=== PATIENT | male | born 1995 | race American Indian/Alaskan Native ===

== ENCOUNTER 2022-10-01 06:30 | Day surgery (SDC) | payer OTHER ==
[~2022-10-01 06:30] MED LIST: DEXAMETHASONE SOD PHOSPHATE 4 MG/ML 1 ML VIAL IV ONE; HEPARIN SODIUM,PORCINE/PF 5,000 UNIT/0.5 ML SYRINGE SQ PRN; LACTATED RINGERS 1,000 ML IV SCH; LIDOCAINE 1% (10MG/ML) FOR IV START INTRADERMA PRN; ONDANSETRON 4 MG/2 ML VIAL IVP ONE; Pre Op ABX Message 1 EACH MISC MISCELLANE ONE
--- NOTE | 2022-10-01 06:31 | P.GSHP ---
History of Present Illness H&P Date: 10/01/22 CHIEF COMPLAINT: Tumor left forearm, 3 cm HISTORY OF PRESENT ILLNESS: The patient is a 50 year-old male with left forearm mass with tenderness over 5+ years. He now who presents for definitive excision. PAST MEDICAL HISTORY: Please see list. PAST SURGICAL HISTORY: Please see list. MEDICATIONS: Please see list. ALLERGIES: Please see list. SOCIAL HISTORY: No illicit drug use FAMILY HISTORY: No reports of Crohn disease or ulcerative colitis. REVIEW OF ORGAN SYSTEMS: CONSTITUTIONAL: No reports of fevers or chills. GI: Denies any blood in stools or constipation. PHYSICAL EXAM: VITAL SIGNS: Stable Musculoskeletal: No clubbing cyanosis GENERAL: Well developed and in no acute distress. Pleasant. HEENT: No sclera icterus. Extraocular movements grossly intact. Moist buccal mucosa. Head is atraumatic, normocephalic. Hears conversational speech. No nasal drainage. NECK: Supple without lymphadenopathy. No JV distention. CHEST: Non-labored respirations and equal bilateral excursions. CARDIOVASCULAR: Regular rate and rhythm. Palpable 2+ radial pulses. ABDOMEN: Soft. Non-tender. Nondistended. NEUROLOGIC: No focal or lateralizing signs. PSYCH: Appropriate affect. Alert and oriented to person, place and time. SKIN: Left forearm tumor, 3 cm ASSESSMENT: 1. Left forearm tumor, 3 cm PLAN: 1. One week of recovery was reviewed. 2. Non-narcotic pain management also reviewed. 3. Excision of lipoma of the outpatient setting was described. Past Medical History Past Medical History: No Reported History History of Any Multi-Drug Resistant Organisms: None Reported Additional Past Surgical History / Comment(s): cyst from neck 20 yrs ago Past Anesthesia/Blood Transfusion Reactions: No Reported Reaction Smoking Status: Former smoker - Past Family History Mother Family Medical History: Cancer Additional Family Medical History / Comment(s): cervical Medications and Allergies Home Medications Medication Instructions Recorded Confirmed Type Atomoxetine HCl 80 mg PO DAILY 09/28/22 09/28/22 History Allergies Allergy/AdvReac Type Severity Reaction Status Date / Time No Known Allergies Allergy Verified 09/28/22 14:39
[2022-10-01] MEDS ORDERED: ACETAMINOPHEN TAB 500 MG TAB PO STA (06:32)
[2022-10-01] MEDS ORDERED: HYDROmorphone 0.5 MG/0.5 ML SYRINGE IVP PRN (07:00)
[2022-10-01] MEDS ORDERED: MELOXICAM 7.5 MG TAB PO SCH (07:00)
[2022-10-01 07:15] LABS: Basophils # (A) 0.1 k/uL (0-0.2); Basophils % (A) 1 %; Eosinophils # (A) 0.2 k/uL (0-0.7); Eosinophils % (A) 3 %; HCT 43.7 % (39.0-53.0); HGB 14.9 gm/dL (13.0-17.5); Lymphocytes # (A) 3.2 k/uL (1.0-4.8); Lymphocytes % (A) 39 %; MCH 32.6 pg (25.0-35.0); MCV 95.8 fL (80.0-100.0); Mean Platelet Volume 8.2; Monocytes # (A) 0.6 k/uL (0-1.0); Monocytes % (A) 7 %; Neutrophils % (A) 49 %; Platelet Count 283 k/uL (150-450); RBC 4.56 m/uL (4.30-5.90); RDW 11.7 % (11.5-15.5); WBC 8.2 k/uL (3.8-10.6)
[2022-10-01] MEDS ORDERED: HYDROmorphone (PF) 1 MG/ML ONE (07:30)
[2022-10-01] MEDS ORDERED: fentaNYL (PF) 50 MCG/ML 2 ML AMP ONE (07:30)
[2022-10-01] MEDS ORDERED: PROPOFOL 10 MG/ML 20 ML VIAL IV ONE (07:30)
[2022-10-01] MEDS ORDERED: MIDAZOLAM 2 MG/2 ML VIAL ONE (07:30)
[2022-10-01] MEDS ORDERED: LIDOCAINE 2% INJ 20 MG/ML (2 ML VIAL) ONE (07:30)
[2022-10-01 07:42] LABS: ALT 30 U/L (4-49); AST 33 U/L (17-59); African American GFR (CKD) >90 (>60 ml/min/1.73 sqM); Albumin 4.7 g/dL (3.5-5.0); Alkaline Phosphatase 70 U/L (38-126); Anion Gap 10 mmol/L; Blood Urea Nitrogen 16 mg/dL (9-20); Calcium 9.9 mg/dL (8.4-10.2); Carbon Dioxide 26 mmol/L (22-30); Chloride 102 mmol/L (98-107); Glucose 94 mg/dL (74-99); Non-African American GFR(CKD) >90 (>60 ml/min/1.73 sqM); Sodium 138 mmol/L (137-145); Total Bilirubin 0.4 mg/dL (0.2-1.3); Total Protein 8.1 g/dL (6.3-8.2)
[2022-10-01 07:49] LABS: Potassium 4.3 mmol/L (3.5-5.1)
[2022-10-01] MEDS ORDERED: BUPIVACAIN-EPI 0.25%-1:200,000 30 ML VIAL SQ ONE (07:57)
[2022-10-01 08:47] VITALS: TEMP 96.8
[2022-10-01 09:23] VITALS: RESP 18
[2022-10-01 09:39] VITALS: BP 97/66; PULSE 73
--- NOTE | 2022-10-02 13:52 | P.OP ---
Date of Procedure: 10/01/22 Description of Procedure: SURGEON: AGNES NINA MD ATHLETIC TEAM PHYSICIAN: NONE. PREOPERATIVE DIAGNOSES: 1. Left forearm tumor, subcutaneous 2. Obesity due to excess calories, BMI 32.3 3. ADHD POSTOPERATIVE DIAGNOSES: 1. Left forearm tumor, subcutaneous, 5 cm 2. Obesity due to excess calories, BMI 32.3 3. ADHD OPERATION: 1. Excision of complex left forearm subcutaneous tumor, 5 cm. 2. Intermediate closure of left lower leg incision, 6 cm. ANESTHESIA: GETA with local ESTIMATED BLOOD LOSS: 10 mL. SPECIMENS REMOVED: 1. Left forearm subcutaneous tumor COMPLICATIONS: None. FINDINGS: 1. Left forearm mass excision, 5 cm complex tumor. INDICATIONS: The patient is a 27-year-old male who presents with left forearm subcutaneous tumor. Surgical options, including excision was discussed. Benefits and risks were described. Informed consent was obtained. DESCRIPTION OF PROCEDURE: Patient was brought into the operating room, laid in left lateral decubitus position. After general intubation, the left forearm was prepped and draped in standard sterile fashion using ChloraPrep. A timeout protocol was confirmed with the surgical team regarding patient's name including procedures to be performed. Preoperative medications was administered. Next, a local field block was administered. The left forearm was measured using a ruler with borders marked with indelible marker. A longitudinal of 6 cm incision was made into the dermis followed by circumferential dissection using electro-Bovie cautery into the subcutaneous tissue of the left volar forearm. Hemostasis was checked with electrocautery. The wound was closed in multiple layers including 0 Vicryl for the deep subcutaneous tissue. The skin was closed using 3-0 Monocryl. The skin was cleansed. Exofin tape was placed. Optifoam dressing was placed. At the end of the procedure, needle, sponge, and instrument count had been verified correct by the certified surgical first assistant. The patient was taken to the postanesthesia care unit in stable condition. Plan - Discharge Summary Discharge Rx Participant: No New Discharge Prescriptions: New Acetaminophen Tab [Tylenol Tab] 1,000 mg PO Q6HR PRN #30 tablet PRN Reason: Pain Continue Atomoxetine HCl 80 mg PO DAILY Discharge Medication List Atomoxetine HCl 80 mg PO DAILY 09/28/22 [History] Acetaminophen Tab [Tylenol Tab] 1,000 mg PO Q6HR PRN #30 tablet 10/01/22 [Rx] Follow up Appointment(s)/Referral(s): Agnes Nina MD [STAFF PHYSICIAN] - 10/05/22 9:15 am (For wound check) Patient Instructions/Handouts: *Surgery [facility] - (Anesthesia) Discharge Instructions Outpatient Surgery, Excision of Skin Lesion (DC) Activity/Diet/Wound Care/Special Instructions: DO NOT REMOVE DRESSING. May shower. No bath tub soaks with left arm for two weeks until October 15 Diet as tolerated. Use Tylenol and ibuprofen or Aleve scheduled for the next 24-48 hours for best p ain relief. Use ice along incisions for today to prevent swelling. Discharge Disposition: HOME SELF-CARE
== END 2022-10-01 09:57 | disposition home or self-care (01) ==
LOC: OR 06:30
PROVIDERS: ATTEND Surgery Plastic and Reconstructive Surgery
DX: D17.22 Benign lipomatous neoplasm of skin and subcutaneous tissue of left arm (principal); E66.9 Obesity, unspecified; Z68.32 Body mass index [BMI] 32.0-32.9, adult; F90.9 Attention-deficit hyperactivity disorder, unspecified type; Z87.891 Personal history of nicotine dependence
CPT/HCPCS: 88304; 80053; 85025; 25071; J2250; J1100; J0690; J2405; J3010; J1170; J2704; J1644; J2001

== ENCOUNTER 2023-04-15 09:24 | Day surgery (SDC) | payer OTHER ==
--- NOTE | 2023-04-14 22:25 | HP ---
HISTORY AND PHYSICAL CHIEF COMPLAINT: Difficulty breathing through his nose. HISTORY OF PRESENT ILLNESS: This patient is a pleasant 27-year-old male who was recently seen in my office complaining of having difficulty breathing through the left side of his nose. The patient states that he has had difficulty breathing through the left side of his nose for most of his life. He does not recall any injuries to his face. He snores quite loudly at night and is noted to be a chronic mouth breather. At the time that he was seen in my office, clinical examination intranasally revealed severe nasal septal deviation with severe septal deviation to the left, hypertrophy of the inferior turbinates bilaterally, hypertrophy of the maxillary crest, deformity of the perpendicular plate of the ethmoid bone and finally there appears to be vomerine spur on the left side posteriorly. Because of these findings, it was recommended that the patient undergo a Je[place] septoplasty with bilateral partial resection of the inferior turbinates under general anesthesia. Past medical history reveals that he has no known allergies to medications. CURRENT MEDICATIONS: Include Claritin for seasonal allergies and Adderall. PREVIOUS SURGERIES: Include a benign cyst that was removed from his neck when he was 5 years old and also he has had a lipoma removed from his forearm. REVIEW OF SYSTEMS: Essentially unremarkable. The patient has a history of ADD. PHYSICAL EXAMINATION: GENERAL: This patient is a pleasant 27-year-old male who is alert and cooperative. HEENT: The patient is normocephalic. Tympanic membranes are normal. Middle ear spaces are free of any fluid or infection. Pupils are equal, round, and reactive to light and accommodation. Extraocular movements are within normal limits. Intranasal examination reveals severe septal deviation to the left, hypertrophy of the maxillary crest, severe hypertrophy of the inferior turbinates bilaterally, deformity of the perpendicular plate of the ethmoid bone, and finally a vomerine spur noted on the left posteriorly. Examination of the oropharynx, cranial nerves 2 through 12. Remainder of the head and neck exam is unremarkable. CHEST/CARDIOVASCULAR: Both lung jaimes are clear to percussion and auscultation. The patient is in regular sinus rhythm. S1 and S2 are present without evidence of any murmurs. Peripheral pulses are bilaterally symmetrical. ABDOMEN: There is no evidence any masses, megaly, or tenderness. The abdomen is soft. SKIN: Unremarkable. MUSCULOSKELETAL/NEUROLOGICAL: Unremarkable. RECTUM: Deferred at this time. The remainder of the physical exam is essentially unremarkable. IMPRESSION: Severe nasal septal deviation with bilateral hypertrophy of the inferior turbinates. PLAN: The patient is scheduled to undergo a [place] septoplasty with bilateral partial resection of the inferior turbinates under general anesthesia in a.m. Attention, RNs in the pre-surgical area: I have ordered for this patient to receive 2 g of Ancef IV, to be given once an intravenous line has been established. If the pharmacy department sends a different pre-surgical prophylactic antibiotic to the pre- surgical area for this patient, please cancel that order and return the medication to the pharmacy department. Also make sure that the patient's account is credited appropriately. In addition, I have ordered for this patient to receive 2000 mg of Ofirmev IV to be given once an intravenous line has been established. This patient will be an overnight stay in the hospital, and I would appreciate it if you would secure him a room for overnight stay. I have discussed the risks, benefits and alternative therapies for the above-mentioned procedure and for both sedation/analgesia as well as necessary blood product administration, if indicated, as they pertain to this patient. The patient has indicated his understanding and acceptance of the risks and procedures discussed. MMODL / IJN: [id number] /
[~2023-04-15 09:24] MED LIST changes: -HEPARIN SODIUM,PORCINE/PF 5,000 UNIT/0.5 ML SYRINGE SQ PRN; +HYDROmorphone 0.5 MG/0.5 ML SYRINGE IVP PRN; -LACTATED RINGERS 1,000 ML IV SCH; +METOCLOPRAMIDE 5 MG/ML 2 ML VIAL IVP PRN; +NALOXONE 0.4 MG/ML 1 ML VIAL IV PRN
[2023-04-15] MEDS: LACTATED RINGERS 1,000 ML IV SCH ×2 (09:58→16:33)
[2023-04-15] MEDS ORDERED: ACETAMINOPHEN IV (For NPO) 1,000 MG in EMPTY BAG 1 BAG IVPB ONE (10:30)
[2023-04-15] MEDS ORDERED: MIDAZOLAM 2 MG/2 ML VIAL ONE (11:05)
[2023-04-15] MEDS ORDERED: GLYCOPYRROLATE 0.2 MG/ML 2 ML VIAL ONE (11:05)
[2023-04-15] MEDS ORDERED: PROPOFOL 10 MG/ML 20 ML VIAL IV ONE (11:05)
[2023-04-15] MEDS ORDERED: LIDOCAINE 2% INJ 20 MG/ML (2 ML VIAL) ONE (11:05)
[2023-04-15] MEDS ORDERED: HYDROmorphone (PF) 1 MG/ML ONE (11:05)
[2023-04-15] MEDS ORDERED: fentaNYL (PF) 50 MCG/ML 2 ML AMP ONE (11:05)
[2023-04-15] MEDS ORDERED: SUCCINYLCHOLINE CHLORIDE 200 MG/10 ML VIAL IV ONE (11:05)
[2023-04-15] MEDS ORDERED: ROCURONIUM 10 MG/ML (5 ML VIAL) IV ONE (11:05)
[2023-04-15] MEDS ORDERED: NEOSTIGMINE 1 MG/ML 10 ML VIAL ONE (11:05)
[2023-04-15] MEDS ORDERED: OXYMETAZOLINE 0.05% NASL SPRAY 1 SPRAY BOTTLE EA NOSTRIL ONE (11:30)
[2023-04-15] MEDS ORDERED: BACITRACIN ZINC 500 UNIT/GM OINT 28.4 GM TUBE TOPICAL ONE (11:30)
[2023-04-15] MEDS ORDERED: LIDOCAINE 1%-EPI 1:100,000 50 ML VIAL SQ ONE ×2 (11:30)
[2023-04-15] MEDS ORDERED: EPINEPHrine 1 MG/ML (MDV) 30 ML VIAL IRRIGATION ONE (12:43)
[2023-04-15] MEDS ORDERED: LACTATED RINGERS 1,000 ML IV ONE ×2 (13:53)
[2023-04-15] MEDS ORDERED: ALPRAZolam 0.5 MG TAB PO PRN (14:00)
[2023-04-15] MEDS ORDERED: HYDROmorphone PCA 10 MG/50 ML BAG IV PRN (14:00)
[2023-04-15] MEDS ORDERED: ONDANSETRON 4 MG/2 ML VIAL IVP PRN (16:30)
[2023-04-15] MEDS ORDERED: TEMAZEPAM 30 MG CAP PO PRN (22:00)
[2023-04-16] MEDS: LACTATED RINGERS 1,000 ML IV SCH ×3 (05:35→06:03)
[2023-04-16 09:08] VITALS: BP 136/88; PULSE 70; RESP 16; TEMP 97.9
--- NOTE | 2023-04-18 23:43 | DS ---
DISCHARGE SUMMARY DATE OF SURGERY: 04/15/2023. CHIEF COMPLAINT: Severe nasal septal deviation with severe hypertrophy of the inferior turbinates. BRIEF HISTORY OF PRESENT ILLNESS: The patient is a 27-year-old male who was admitted to [facility] to undergo Jeyson septoplasty with bilateral partial resection of the inferior turbinates. HOSPITAL COURSE: The patient underwent a [place] septoplasty with bilateral partial resection of the inferior turbinates. At the time of surgery, it was noted that his deformities were quite severe and this required extended operating time. The patient was subsequently admitted to the hospital overnight with both nares packed. He was placed on supplemental O2 to prevent overnight desaturation while the patient was asleep. He was placed on IV antibiotics, Ancef 2 g IV q.8 hours. He was also given the necessary IV fluids, sleeping medication, pain medication, etc. His hospital course was uneventful. DISCHARGE STATUS: On 04/16/2023, the nasal packing was removed from the patient's nose without incident. The patient was kept in the hospital for approximately an additional 20 minutes to make sure there was no bleeding. He was given his home going instructions, both verbally and they were written in his discharge packet. All of his questions were answered. He is discharged on the following medications, Willet 5/325 tablets, #18. He is to take Willet 1 p.o. q.4 hours p.r.n. for pain. Once he is out of the Willet, he can switch over to ibuprofen or Tylenol. His second prescription is for Ceftin 500 mg tablets, 1 p.o. b.i.d. until gone #20. He is scheduled to be seen in my office for postoperative visit on 04/21/2023. At that time, Silastic nasal splints that are sewn into his nose will be removed in the office. The patient is discharged to home in satisfactory condition. MMODL / IJN: [id number] / MTDD
--- NOTE | 2023-04-18 23:56 | OP ---
OPERATIVE REPORT DATE OF SERVICE : 04/15/2023 PREOPERATIVE DIAGNOSIS: Severe nasal septal deviation with bilateral inferior turbinate hypertrophy. POSTOPERATIVE DIAGNOSIS: Severe nasal septal deviation with bilateral inferior turbinate hypertrophy. ANESTHESIA: General. OPERATIVE PROCEDURE: [place] septoplasty with bilateral partial resection of the inferior turbinates. COMPLICATIONS: See description below. ESTIMATED BLOOD LOSS: Less than 50 mL. DESCRIPTION OF PROCEDURE: The patient was placed on the operating table in the supine position and after uneventful induction of endotracheal intubation, satisfactory general anesthesia was obtained. The patient was draped in the usual and customary fashion. Initially, both the right and left nasal chambers were packed with cottonoids saturated with Afrin nasal spray and placed just alongside the right and left inferior turbinates respectively. This was to achieve maximum vasoconstriction. These cottonoids were left in place for a period of approximately 7 minutes prior to removal. The membrane portion of the septum was grasped with columellar retractor, which was pulled anteriorly. The membrane septum was then infiltrated with approximately 0.5 mL of 1% Xylocaine with epinephrine, 1:100,000. An additional 1 mL was injected down along the nasal spine. After a period of 10 minutes had elapsed, the cottonoids were removed and the nose was re-evaluated. It was noted that this was a severe deviation. That is to say, the anterior cartilage portion of the septum was buckled on itself and was subluxed off the maxillary crest. In addition to this, there was a large cartilaginous septal spur anteriorly projecting into the left nasal airway. There was significant deformity of the perpendicular plate of the ethmoid bone posteriorly, there was a vomerine spur projecting into the left nasal chamber posteriorly. Finally, there was severe bilateral hypertrophy of the inferior turbinates. The maxillary crest also was noted to be hypertrophied with the presence of so-called spurs or wings on the right and left side. It was felt that this would be a very difficult dissection. The patient has apparently sustained some sort of nasal trauma in the distant past or in his delivery representative. Next, using a #15 scalpel, an incision was made in the membranous septum just caudal to the cartilage portion of the septum, beginning at the dome of the nose, working down to the floor of the nose, cutting only through the mucous membrane. Next, using a pair of sharp angled Eusebio scissors, the soft tissue overlying the caudal end of the cartilage portion of the septum was exposed by dissecting away the overlying soft tissues. Once the perichondrium was reached on the cartilage portion of the septum, this was sharply incised. Next, using the sharp end of the McKenty, a dissection was carried out in a subperichondrial plane by using short advancing motions beginning superiorly and working inferiorly. This was the beginning of the so-called anterior tunnel. This dissection was carried out to the junction where the cartilage had apparently fractured and buckled on itself. It was at this point that the cartilage was sharply incised. It is noted this dissection was begun on the left side of the cartilage portion of the septum. After sharply incising the cartilage, the dissection was then switched over to the right side of the cartilage portion of the septum in the usual fashion. This dissection was carried out again using the McKenty dissector to sharply dissect the mucoperichondrium off the cartilage from superior to inferior. Inferiorly it was dissected down to the maxillary crest. This dissection continued posterior to until the junction of the perpendicular plate of the ethmoid bone and the cartilage was reached. At this point, the junction between the bone and the cartilage was palpated and at this point, the dissection was continued using the blunt end of a Brothers and a sweeping motion from superior to inferior with the dissection being carried all the way back to the rostrum of the sphenoid. This dissection was carried all the way down to the floor of the nose with the assistance of a hockey stick. At the junction of the perpendicular plate of the ethmoid and the cartilaginous cartilage, this was sharply incised using the sharp end of the McKenty dissector and the dissection was crossed over to the left side of the perpendicular plate of the ethmoid. Once again using the blunt end of the Brothers in a sweeping motion, the dissection was carried out from superior to inferior back to the rostrum of the ethmoid bone. The dissection was carried down to the floor using a hockey stick. A small inferior strip was removed from the most posterior portion of the cartilaginous septum and this was discarded. This was accomplished using a [place] knife. Having done this, this freed the cartilaginous septum up from the maxillary crest. An inferior tunnel was created on the left side of the maxillary crest using a combination of a McKenty and a gently curved Brothers working from anterior to posterior. Following this, the inferior tunnel and the superior tunnel were then joined. This completely freed the septum from the maxillary crest on the left side. A similar inferior tunnel was carried out on the right side of the maxillary crest. Having done this, the bony deformities were easily recognized. The maxillary crest deformity was corrected by removing the wings on the right and left side of the maxillary crest using a chisel and a mallet. Care was taken not to take down the maxillary crest too much. The central portion of the perpendicular plate was removed using a pair of double acting bone biting Kerrison. Following this, using a combination of chisel with mallet, the vomerine spur posteriorly was dislocated and was subsequently grasped with a pair of Kerrison forceps and after a slight twist, this deformity was removed. Attention was directed to the cartilaginous deformity and this was corrected by scoring the posterior section of the buckled cartilage using a #15 scalpel in a cross-silverman manner. The portion of the cartilaginous septum anteriorly, which was actually projecting into the left nasal chamber was dissected free and was removed. Having completed these maneuvers, this allowed the septum to be placed back into the midline with minimal deformities remaining. Care was taken to make sure that enough of the cartilaginous septum remained anteriorly to prevent any type of nasal collapse. Having dealt with the nasal septal deformities, attention was directed towards the inferior turbinates initially beginning with the right inferior turbinate, this was clamped with a curved Skylar clamp for 10 minutes. After releasing the clamp, the crushed portion delineated the part to be resected. This part was resected using a pair of angled turbinectomy scissors. Hemostasis was obtained using electrocautery. The same procedure was carried out on the left side and the left inferior turbinate. That is to say, the left inferior turbinate was clamped with a curved Skylar clamp as high as possible. The clamp was left on for a period of approximately 7 minutes. Upon removing the clamp, the crushed portion of the turbinate delineated the part that needed to be resected. This resection was carried out using a pair of angled turbinectomy scissors. Hemostasis was obtained using electrocautery. Inspection revealed that the patient had a significantly improved nasal airway bilaterally. Both nasal chambers were dusted with Sean hemostatic powder in the usual fashion. Following this, the previously made membrane incision was closed using a single 4-0 chromic suture in a running fashion. Two 8 cm Xomed silastic nasal splints were inserted in the right left and nasal chamber, respectively. These was sewn to the membrane portion of the septum using a 4- 0 silk suture on a straight Werner needle. Both the right and left nasal chambers were packed with 8 cm Merocel nasal tampons which were placed just lateral to the silastic splints. A mustache dressing was applied. At this point, the procedure was terminated. The approximate starting time was 11:30 a.m. Approximate end time was 03:30 p.m., total operating time was approximately 4 hours. The reason for the extended operating time (normal operating time for this procedure is approximately 2 hours) was because of the extensive nasal septal deformities that were encountered during the operation. This required that the procedure proceed quite slowly in an effort to prevent any tears of the nasal mucosa. At this point, the procedure was terminated. There were no intraoperative complications. The patient tolerated the procedure well. Estimated blood loss was less than 50 mL. The patient was returned to recovery room in satisfactory condition. Again, this procedure had an extended operating time of approximately 4 hours, which is approximately 2 hours longer than normal. MMODL / IJN: [id number] /
== END 2023-04-16 14:53 | disposition home or self-care (01) ==
LOC: OR 09:24 → 6NMEDSUR 15:12 → OR 04-16 14:53
PROVIDERS: ATTEND Otolaryngology
DX: J34.2 Deviated nasal septum (principal); J34.3 Hypertrophy of nasal turbinates
CPT/HCPCS: 88300; 30520; 30130; J0171; J2250; J0330; J1100; J2710; J0690 ×2; J2405; J3010; J1170 ×2; J0131; J2704; J2001